=== PATIENT | male | born 1950 | race Caucasian/White ===

== ENCOUNTER 2017-01-30 14:13 | Emergency (ER) | payer OTHER ==
--- NOTE | 2017-01-30 14:14 | EDPHY ---
H & P Constitutional: Initial Vital Signs Temperature (C) 36.4 C 01/30/17 14:30 Heart Rate 102 H 01/30/17 14:30 Respiratory Rate 18 01/30/17 14:30 Blood Pressure 129/87 H 01/30/17 14:30 O2 Sat (%) 92 01/30/17 14:30 O2 Delivery Mode Room Air Allergies/Adverse Reactions: No Known Allergies Allergy (Verified 01/30/17 15:27) Home Medications: Medication Instructions Recorded Xanax Unk Dose 10/02/12 predniSONE [Prednisone] 60 mg PO DAILY #20 tablet 10/03/12 Medical Decision Making ED Course/Re-evaluation: CHIEF COMPLAINT: SI. HISTORY OF PRESENT ILLNESS: The patient is a 66-year-old male who presents via EMS for SI. Per EMS he sent a picture of himself holding a gun to his head to a friend and was punching himself in the face when they arrived. He was initially compliant with EMS but then became noncompliant. EMS administered 5mg IM Midazolam en route. He is severely intoxicated and the history is thus severely limited. REVIEW OF SYSTEMS: A 10 point review of systems was performed and is negative with the exception of the elements mentioned in the history of present illness. PHYSICAL EXAM: HR, BP, O2 Sat, RR. Temp noted General Appearance: Alert, well hydrated, appropriate, and non-toxic appearing. Head: Atraumatic without scalp tenderness or obvious injury Eyes: Pupils equal, round, reactive to light and accommodation, EOMI, no trauma , no injection. Ears: Clear bilaterally, no perforation, normal landmarks Nose: Atraumatic, no rhinorrhea, clear. Throat: There is no erythema or exudates, no lesions, normal tonsils, mucus membranes moist. Neck: Supple, 2+ carotid upstroke, nontender, no lymphadenopathy. Respiratory: No retractions, no distress, no wheezes, and no accessory muscle use. Lungs are clear to auscultation bilaterally. Cardiovascular: Regular rate and rhythm, no murmurs, rubs, or gallops. Bilateral carotid, radial, dorsalis pedis, and posterior tibial pulses intact. Good capillary refill all extremities. Gastrointestinal: Abdomen is soft, nontender, non-distended, no masses, no rebound, no guarding, no peritoneal signs. Musculoskeletal: Normal active ROM of all extremities, atraumatic. Neurological: Alert, appropriate, and interactive. The patient has normal DTRs and non-focal cranial nerves, motor, sensory, and cerebellar exam. Skin: No rashes, good turgor, no nodules on palpation. Past medical history: Depression. Past surgical history: Appendectomy. Family history: N/A. Social history: Dentist. DIFFERENTIAL DIAGNOSIS: The differential diagnosis includes, but is not limited to: depression, psychosis, anxiety, intoxication. MEDICAL DECISION MAKIN-year-old male presents via EMS for suicidal ideation and self-harm. He is highly intoxicated in the ED today. He has been placed on a mental health hold and is awaiting evaluation by the psychiatric team. 10mg IM Haldol administered for sedation. 1500: Patient signed out to Dr. Tenorio at shift change. Patient awaiting sobriety and subsequent psychiatric evaluation. (Chapo Galaviz) 7:00 a.m.- The patient has been stable throughout my shift. He was evaluated by the mental health worker who is gathering collateral information at this time. Disposition is to be determined. The case will be signed out to Dr. Casey at change of shift. (Tosha De La Rosa) Other Provider: I assumed care of the patient at 6:00 a.m. pending psychiatric evaluation. Update at 9 a.m.. The patient was evaluated by the inpatient psychiatric team a [facility]. The patient currently contracts for safety. There is a safety plan in place. The patient will be discharged at this point time. The patient will return to the ED for any recurrent symptoms of suicidal ideation. The mental health hold was vacated by the [facility] psychiatrist. (Storm Casey) - Data Points Laboratory Results: Laboratory Results 01/30/17 23:00 01/30/17 14:30 01/30/17 01/30/17 23:00 14:30 WBC 9.49 10^3/uL 10^3/uL (3.80-9.50) RBC 5.12 10^6/uL 10^6/uL (4.40-6.38) Hgb 13.2 g/dL L g/dL (13.7-17.5) Hct 41.1 % % (40.0-51.0) MCV 80.3 fL L fL (81.5-99.8) MCH 25.8 pg L pg (27.9-34.1) MCHC 32.1 g/dL L g/dL (32.4-36.7) RDW 24.8 % H % (11.5-15.2) Plt Count 234 10^3/uL 10^3/uL (150-400) MPV 9.3 fL fL (8.7-11.7) Neut % (Auto) 68.7 % % (39.3-74.2) Lymph % (Auto) 15.4 % % (15.0-45.0) [place] % (Auto) 11.6 % % (4.5-13.0) Eos % (Auto) 3.4 % % (0.6-7.6) Baso % (Auto) 0.6 % % (0.3-1.7) Nucleat RBC Rel Count 0.0 % % (0.0-0.2) Absolute Neuts (auto) 6.52 10^3/uL H 10^3/uL (1.70-6.50) Absolute Lymphs (auto) 1.46 10^3/uL 10^3/uL (1.00-3.00) Absolute Monos (auto) 1.10 10^3/uL H 10^3/uL (0.30-0.80) Absolute Eos (auto) 0.32 10^3/uL 10^3/uL (0.03-0.40) Absolute Basos (auto) 0.06 10^3/uL 10^3/uL (0.02-0.10) Absolute Nucleated RBC 0.00 10^3/uL 10^3/uL (0-0.01) Immature Gran % 0.3 % % (0.0-1.1) Immature Gran # 0.03 10^3/uL 10^3/uL (0.00-0.10) Platelet Estimate ADEQUATE (ADEQ) Polychromasia 1+ H Microcytic Cells 1+ H Oval Macrocytes 1+ H Phosphorus 3.1 mg/dL mg/dL (2.5-4.5) Magnesium 2.2 mg/dL mg/dL (1.6-2.3) Total Bilirubin 0.6 mg/dL mg/dL (0.1-1.4) Conjugated Bilirubin 0.3 mg/dL mg/dL (0.0-0.5) Unconjugated Bilirubin 0.3 mg/dL mg/dL (0.0-1.1) AST 40 IU/L IU/L (17-59) ALT 48 IU/L IU/L (21-72) Alkaline Phosphatase 65 IU/L IU/L (38-126) Total Protein 7.5 g/dL g/dL (6.3-8.2) Albumin 3.9 g/dL g/dL (3.5-5.0) Vitamin B12 401 pg/mL pg/mL (239-931) Folate 7.71 ng/mL ng/mL (2.80 - >20.00) TSH 0.908 uIU/mL uIU/mL (0.465-4.680) Medications Given: Discontinued Medications Diazepam (Valium) 10 mg PO EDNOW ONE Stop: 01/31/17 02:47 Last Admin: 01/31/17 02:50 Dose: 10 mg Diphenhydramine HCl (Benadryl) 25 mg PO EDNOW ONE Stop: 01/31/17 01:57 Last Admin: 01/31/17 02:34 Dose: 25 mg Haloperidol Lactate (Haldol Injection) 10 mg IM EDNOW ONE Stop: 01/30/17 14:56 Last Admin: 01/30/17 15:04 Dose: 10 mg Lorazepam (Ativan) 1 mg PO EDNOW ONE Stop: 01/30/17 14:40 Last Admin: 01/30/17 14:55 Dose: Not Given Lorazepam (Ativan) 2 mg PO EDNOW ONE Stop: 01/30/17 19:36 Last Admin: 01/30/17 19:40 Dose: 2 mg Departure - Departure Disposition: Home, Routine, Self-Care Clinical Impression: Suicide ideation Condition: Good Instructions: Suicide Prevention for Adults (ED) Additional Instructions: 1. Return to the ED immediately for any symptoms of recurrent suicidal thoughts , worsening depression or other concerns. 2. Please follow up as directed by the mental health senior systems administrator. 3. [facility] does operate a 24/ psychiatric crisis unit located at [address] [place] [address]. The telephone number for the 24 hour crisis center is . Report Scribed for: Chapo Galaviz Report Scribed by: Abad Ho Date of Report: 01/30/17 Time of Report: 14:20
[2017-01-30] MEDS ORDERED: LORazepam 1 MG TAB PO ONE ×2 (14:39→19:35)
[2017-01-30 14:50] LABS: ANION GAP 16 mEq/L (8-16); CALCIUM 9.5 mg/dL (8.5-10.4); CARBON DIOXIDE 21 mEq/l (22-31); CHLORIDE 107 mEq/L (97-110); CREATININE 1.3 mg/dL (0.7-1.3); ETHANOL SERUM 284 mg/dL (0-10); GLOMERULAR FILTRATION RATE 56; GLUCOSE 86 mg/dL (70-100); POTASSIUM 4.3 mEq/L (3.5-5.2); SALICYLATE < 1.0 mg/dL (2.0-20.0); SODIUM 144 mEq/L (134-144)
[2017-01-30] MEDS ORDERED: HALOPERIDOL LACT 5 MG/ML INJ ONE (14:50)
[2017-01-30] MEDS ORDERED: HALOPERIDOL LACT 5 MG/ML INJ IM ONE (14:55)
[2017-01-30] MEDS ORDERED: LORazepam 1 MG TAB ONE (19:31)
[2017-01-30 23:05] LABS: % IMMATURE GRANULYOCYTES 0.3 % (0.0-1.1); ABSOLUTE IMMATURE GRANULOCYTES 0.03 10^3/uL (0.00-0.10); ADD DIFF? NO; ADD MORPH? YES; ADD SCAN? NO; ATYPICAL LYMPHOCYTE FLAG 0 (0-99); FRAGMENT RBC FLAG 40 (0-99); HEMATOCRIT 41.1 % (40.0-51.0); HEMOGLOBIN 13.2 g/dL (13.7-17.5); LEFT SHIFT FLG 0 (0-99); LIPEMIA HEMOLYSIS FLAG 80 (0-99); MEAN CELL HEMOGLOBIN 25.8 pg (27.9-34.1); MEAN CELL HEMOGLOBIN CONCENTR. 32.1 g/dL (32.4-36.7); MEAN CELL VOLUME 80.3 fL (81.5-99.8); MEAN PLATELET VOLUME 9.3 fL (8.7-11.7); PLATELET CLUMPS FLAG 0 (0-99); PLATELET COUNT 234 10^3/uL (150-400); RED BLOOD CELL COUNT 5.12 10^6/uL (4.40-6.38)
[2017-01-30 23:10] LABS: RED CELL DISTRIBUTION WIDTH 24.8 % (11.5-15.2)
[2017-01-30 23:25] LABS: MACROCYTES 1+; MICROCYTES 1+; PLATELET ESTIMATE ADEQUATE (ADEQ); POLYCHROMASIA 1+
[2017-01-31] MEDS ORDERED: diphenhydrAMINE 25 MG CAP PO ONE (01:56)
[2017-01-31 02:12] LABS: ALBUMIN 3.9 g/dL (3.5-5.0); BILIRUBIN,TOTAL 0.6 mg/dL (0.1-1.4); BILIRUBIN-CONJUGATED 0.3 mg/dL (0.0-0.5); BILIRUBIN-UNCONJUGATED 0.3 mg/dL (0.0-1.1); MAGNESIUM 2.2 mg/dL (1.6-2.3); TOTAL PROTEIN 7.5 g/dL (6.3-8.2)
[2017-01-31] MEDS ORDERED: DIAZEPAM 5 MG TAB PO ONE (02:46)
[2017-01-31 03:18] LABS: FOLATE SERUM 7.71 ng/mL (2.80 - >20.00)
[2017-01-31 08:03] VITALS: BP 140/83; PULSE 87; RESP 18; TEMP 97.7; O2SAT 96
== END 2017-01-31 08:47 | disposition home or self-care (01) ==
LOC: EDUNIT#
DX: R45.851 Suicidal ideations (principal)
CPT/HCPCS: 80305; 82607-90; G0480